=== PATIENT | female | born 1990 | race Caucasian/White ===

== ENCOUNTER 2016-05-02 12:45 | Emergency (ER) | payer BC ==
[2016-05-02 12:59] VITALS: BP 111/69
--- NOTE | 2016-05-02 13:05 | EDM.PDOC ---
<Naseem Ballard O - Last Filed: 05/02/16 16:17> ED HPI RENAL/ - General Chief Complaint: Flank Pain Stated Complaint: 18 WKS PREG/ POSS. KIDNEY STONE Time Seen by Provider: 05/02/16 13:01 Source of Information: Reports: Patient History Limitations: Reports: No limitations - History of Present Illness INITIAL COMMENTS - FREE TEXT/NARRATIVE: Patient is a 25-year-old female presents ED complaining of left flank pain that radiates into her left groin. Patient states this came on abruptly at approximately 9:30 this morning. Described as being sharp, constant, with waxing waning in intensity. Currently discomfort rated a 7/10. At its peak it 8/10. She does have some discomfort with urination with no hematuria present. She's my nauseated but no emesis. She has a history of mild constipation with last bowel movement this morning described as formed with no straining present. There is no blood within the stool. States she has a history kidney stones she states it feels like previous episodes. Last CT of the abdomen was obtained 12/2014 which revealed 2 small nonobstructive stone at the left kidney. She NO to the right kidney. Patient is of note 20 weeks with no documented complications since conceiving. Patient is taking vitamins. Her last CLIENT DEVELOPMENT DIRECTOR will check was March 31, 2016. She denies any vaginal bleeding, abnormal vaginal discharge, or recent sexual intercourse constant discomfort. Patient has both her ovaries. Timing/Duration: Reports: Constant, Sudden onset, Waxing/waning Location: Reports: groin (Left), flank (left) Quality: Reports: ache, stabbing, radiating Severity: severe (7/10) Worsens with: Reports: urinating, palpation Context: Reports: other (History kidney stones) Associated Symptoms: Reports: dysuria, abdominal pain (Left groin), nausea/ vomiting (Nauseated), constipation, other (No hematuria). 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 Denies: Bloody stool, Diarrhea, Hematochezia, Melena, Vomiting : Reports: dysuria, flank pain, other (No abnormal vaginal discharge). Denies : hematuria Musculoskeletal: Reports: no symptoms Neurological: Reports: no symptoms ED EXAM, RENAL/ - Physical Exam Exam: See Below Exam Limited By: No limitations General Appearance: alert, WD/WN, no apparent distress Eye Exam: bilateral eye: PERRL Ears: hearing grossly normal Throat/Mouth: Normal inspection, Normal oropharynx, Normal voice, No airway compromise Neck: normal inspection, supple Respiratory/Chest: no respiratory distress, lungs clear, normal breath sounds Cardiovascular: normal peripheral pulses, regular rate, rhythm GI/Abdominal: normal bowel sounds, soft, no organomegaly, no distention, other ( Pain to the left groin/left flank) (Female) Exam: Deferred, Enlarged uterus. No: Uterine tenderness Rectal (Female) Exam: Deferred Back Exam: normal inspection, full range of motion. No: CVA tenderness (L), CVA tenderness (R) Extremities: normal inspection, normal range of motion, non-tender, no pedal edema Neurological: alert, oriented, CN II-XII intact, normal cognition, no motor/ sensory deficits Psychiatric: normal affect, normal mood Skin Exam: Warm, Dry, Intact, Normal color Course - Vital Signs Last Recorded V/S: Last Vital Signs Temp 37.1 C 05/02/16 12:58 Pulse 73 05/02/16 12:58 Resp 20 05/02/16 12:58 BP 111/69 05/02/16 12:58 Pulse Ox 99 05/02/16 12:58 - Orders/Labs/Meds Orders: Active Orders 24 hr Category Date Time Status Peripheral IV Care [RC] . DIRECTED Care 05/02/16 13:30 Active Peripheral IV Insertion Adult [OM.PC] Stat Oth 05/02/16 13:28 Ordered Labs: Laboratory Tests 0205/02/16 05/02/16 Range/Units 12:57 13:55 13:55 WBC 8.34 (3.98-10.04) K/mm3 RBC 4.21 (3.98-5.22) M/mm3 Hgb 12.0 (11.2-15.7) gm/L Hct 36.4 (34.1-44.9) % MCV 86.5 (79.4-94.8) fl MCH 28.5 (25.6-32.2) pg MCHC 33.0 (32.2-35.5) g/dl RDW Std Deviation 41.9 (36.4-46.3) fL Plt Count 252 (182-369) K/mm3 MPV 10.0 (9.4-12.3) fl Neut % (Auto) 70.5 (34.0-71.1) % Lymph % (Auto) 21.9 (19.3-51.7) % [place] % (Auto) 4.4 L (4.7-12.5) % Eos % (Auto) 3.0 (0.7-5.8) Baso % (Auto) 0.1 (0.1-1.2) % Neut # 5.87 (1.56-6.13) K/mm3 Lymph # 1.83 (1.18-3.74) K/mm3 [place] # 0.37 H (0.24-0.36) K/mm3 Eos # 0.25 (0.04-0.36) K/mm3 Baso # 0.01 (0.01-0.08) K/mm3 Sodium 138 (136-145) mEq/L Potassium 4.1 (3.5-5.1) mEq/L Chloride 105 (98-107) mEq/L Carbon Dioxide 26 (21-32) mEq/L Anion Gap 11.1 (5-15) BUN 9 (7-18) mg/dL Creatinine 0.6 (0.55-1.02) mg/dL Est Cr Clr Drug Dosing 117.54 mL/min Estimated GFR (MDRD) > 60 (>60) mL/min BUN/Creatinine Ratio 15.0 (14-18) Glucose 106 (74-106) mg/dL Calcium 8.8 (8.5-10.1) mg/dL Total Bilirubin 0.6 (0.2-1.0) mg/dL AST 16 (15-37) U/L ALT 7 L (14-59) U/L Alkaline Phosphatase 56 (46-116) U/L C-Reactive Protein < 0.2 (<1.0) mg/dL Total Protein 6.2 L (6.4-8.2) g/dl Albumin 2.5 L (3.4-5.0) g/dl Globulin 3.7 gm/dL Albumin/Globulin Ratio 0.7 L (1-2) HCG, Quant mIU/mL Urine Color Light yellow (Yellow) Urine Appearance Slt cloudy H (Clear) Urine pH 7.0 (5.0-8.0) Ur Specific [place] 1.020 (1.005-1.030) Urine Protein Trace H (Negative) Urine Glucose (UA) Negative (Negative) Urine Ketones Negative (Negative) Urine Occult Blood 1+ H (Negative) Urine Nitrite Negative (Negative) Urine Bilirubin Negative (Negative) Urine Urobilinogen 0.2 (0.2-1.0) Ur Leukocyte Esterase Negative (Negative) Urine RBC 10-20 H (0-5) /hpf Urine WBC 0-5 (0-5) /hpf Ur Squamous Epith Cells 10-20 H (0-5) /hpf Amorphous Sediment Many H (NOT SEEN) /hpf Urine Bacteria Many H (FEW) /hpf Urine Mucus Not seen (FEW) /hpf 05/02/16 Range/Units 13:55 WBC (3.98-10.04) K/mm3 RBC (3.98-5.22) M/mm3 Hgb (11.2-15.7) gm/L Hct (34.1-44.9) % MCV (79.4-94.8) fl MCH (25.6-32.2) pg MCHC (32.2-35.5) g/dl RDW Std Deviation (36.4-46.3) fL Plt Count (182-369) K/mm3 MPV (9.4-12.3) fl Neut % (Auto) (34.0-71.1) % Lymph % (Auto) (19.3-51.7) % [place] % (Auto) (4.7-12.5) % Eos % (Auto) (0.7-5.8) Baso % (Auto) (0.1-1.2) % Neut # (1.56-6.13) K/mm3 Lymph # (1.18-3.74) K/mm3 [place] # (0.24-0.36) K/mm3 Eos # (0.04-0.36) K/mm3 Baso # (0.01-0.08) K/mm3 Sodium (136-145) mEq/L Potassium (3.5-5.1) mEq/L Chloride (98-107) mEq/L Carbon Dioxide (21-32) mEq/L Anion Gap (5-15) BUN (7-18) mg/dL Creatinine (0.55-1.02) mg/dL Est Cr Clr Drug Dosing mL/min Estimated GFR (MDRD) (>60) mL/min BUN/Creatinine Ratio (14-18) Glucose (74-106) mg/dL Calcium (8.5-10.1) mg/dL Total Bilirubin (0.2-1.0) mg/dL AST (15-37) U/L ALT (14-59) U/L Alkaline Phosphatase (46-116) U/L C-Reactive Protein (<1.0) mg/dL Total Protein (6.4-8.2) g/dl Albumin (3.4-5.0) g/dl Globulin gm/dL Albumin/Globulin Ratio (1-2) HCG, Quant 23514.0 mIU/mL Urine Color (Yellow) Urine Appearance (Clear) Urine pH (5.0-8.0) Ur Specific [place] (1.005-1.030) Urine Protein (Negative) Urine Glucose (UA) (Negative) Urine Ketones (Negative) Urine Occult Blood (Negative) Urine Nitrite (Negative) Urine Bilirubin (Negative) Urine Urobilinogen (0.2-1.0) Ur Leukocyte Esterase (Negative) Urine RBC (0-5) /hpf Urine WBC (0-5) /hpf Ur Squamous Epith Cells (0-5) /hpf Amorphous Sediment (NOT SEEN) /hpf Urine Bacteria (FEW) /hpf Urine Mucus (FEW) /hpf Meds: Medications Discontinued Medications Generic Name Dose Route Start Last Admin Trade Name Freq PRN Reason Stop Dose Admin Hydromorphone HCl 0.5 mg 05/02/16 13:31 05/02/16 13:41 Dilaudid IVPUSH 05/02/16 13:32 0.5 mg ONETIME ONE Administration Hydromorphone HCl 0.25 mg 05/02/16 15:07 05/02/16 15:11 Dilaudid IVPUSH 05/02/16 15:08 0.25 mg ONETIME ONE Administration Sodium Chloride 1,000 mls @ 125 mls/hr 05/02/16 13:45 05/02/16 13:41 Normal Saline IV 125 mls/hr ASDIRECTED MALKA Administration Ondansetron HCl 4 mg 05/02/16 13:31 05/02/16 13:41 Zofran IVPUSH 05/02/16 13:32 4 mg ONETIME ONE Administration Sodium Chloride 10 ml 05/02/16 13:29 05/02/16 13:40 Saline Flush FLUSH 10 ml ASDIRECTED PRN Administration Keep Vein Open Tamsulosin HCl 0.4 mg 05/02/16 16:03 05/02/16 16:11 Flomax PO 05/02/16 16:04 0.4 mg ONETIME ONE Administration - Re-Assessments/Exams Free Text/Narrative Re-Assessment/Exam: UA was obtained showing occult blood 1+, urine rbc's 10-20, leukocyte esterase negative, nitrates negative, wbc's 0-5. 05/02/16 13:35 ordered peripheral IV was normal saline at 25 mL per hour, Zofran 4 mg IVP, Dilaudid 0.5 mg IVP. Labs and studies include CBC, chem 14, CRP, HCG quanitative, and retroperitoneal complete ultrasound. 05/02/16 14:52 Labs reviewed: CBC and chem 14 were essentially normal. UA as documented above. Awaiting results of ultrasound. Pain to flank/groin has worsened with ultrasound. Ordered dilaudid 0.25 mg IVP. 05/02/16 15:27 HCG 29009. 05/02/16 16:04 ultrasound impression: Left-sided hydronephrosis with dilated left ureter seen within the pelvis. No definite shadowing stone is seen by findings are suspicious for obstruction at the UVJ. Resisted to the indices are also and slightly increased on the left side which is felt to be caused by the left distal ureteral obstruction. Slightly echogenic renal paramedics with in the right kidney raising the possibility of medullary sponge kidney. CT abdomen and pelvis obtained 12/19/14 impression: Two nonobstructing stones of the left kidney. Left ureteral dilatation secondary to an obstructing distal left ureteral stone measuring about 4.3 mm. This obstructing stone is located within the distal ureter near the UVJ. Reassessment, patient is resting comfortably in bed with minimal complaints at this time. Unclear if stone will pass on its own accord with unable to determine size. Will order flomax 0.4mg. Patient will be discharged home with instructions for kidney stone and prescriptions for zofran/norco/flomax. Departure - Departure Time of Disposition: 16:08 Disposition: Home, Self-Care 01 Clinical Impression: Ureteric colic, Left nephrolithiasis, Medullary sponge kidney Instructions: Renal Colic, [id number] Referrals: Konstantin Diop MD [Primary Care Provider] - Forms: ED Department Discharge, Refusal Medical Screening, Return to Work/ School Form Additional Instructions: Take the zofran 4mg ODT every 6 hours as needed for nausea. For pain take tylenol 650mg every 6 hours. For severe pain take norco1 tab every 6 hrs as needed. Do not take norco and tylenol together. Suggest straining all urine voids. Push the fluids. Take flomax 1 tab everyday. Followup with PCP in 2 days if symptoms have not improved. Keep appointment with CLIENT DEVELOPMENT DIRECTOR as scheduled. Return to the E.D. for fever, worsening pain, n/v, or any additional new or worsening symptoms. No driving today nor while taking the norco. Followup with PCP for further discussion for medullary sponge kidney. <Ruddy Patten - Last Filed: 05/02/16 19:45> ED HPI RENAL/ - General Source of Information: Reports: Patient History Limitations: Reports: No limitations Past Medical History Other Respiratory History: Patient had asthma since 7th grade, on medication albuterol inhalation Other OB/BYN History: LMP 09/26/14 Social & Family History - Tobacco Use Smoking Status *Q: Never Smoker - Recreational Drug Use Recreational Drug Use: No Course - Orders/Labs/Meds Orders: Active Orders 24 hr Category Date Time Status Peripheral IV Care [RC] . DIRECTED Care 05/02/16 13:30 Active Peripheral IV Insertion Adult [OM.PC] Stat Oth 05/02/16 13:28 Ordered Labs: Laboratory Tests 05/02/16 05/02/16 05/02/16 Range/Units 12:57 13:55 13:55 WBC 8.34 (3.98-10.04) K/mm3 RBC 4.21 (3.98-5.22) M/mm3 Hgb 12.0 (11.2-15.7) gm/L Hct 36.4 (34.1-44.9) % MCV 86.5 (79.4-94.8) fl MCH 28.5 (25.6-32.2) pg MCHC 33.0 (32.2-35.5) g/dl RDW Std Deviation 41.9 (36.4-46.3) fL Plt Count 252 (182-369) K/mm3 MPV 10.0 (9.4-12.3) fl Neut % (Auto) 70.5 (34.0-71.1) % Lymph % (Auto) 21.9 (19.3-51.7) % [place] % (Auto) 4.4 L (4.7-12.5) % Eos % (Auto) 3.0 (0.7-5.8) Baso % (Auto) 0.1 (0.1-1.2) % Neut # 5.87 (1.56-6.13) K/mm3 Lymph # 1.83 (1.18-3.74) K/mm3 [place] # 0.37 H (0.24-0.36) K/mm3 Eos # 0.25 (0.04-0.36) K/mm3 Baso # 0.01 (0.01-0.08) K/mm3 Sodium 138 (136-145) mEq/L Potassium 4.1 (3.5-5.1) mEq/L Chloride 105 (98-107) mEq/L Carbon Dioxide 26 (21-32) mEq/L Anion Gap 11.1 (5-15) BUN 9 (7-18) mg/dL Creatinine 0.6 (0.55-1.02) mg/dL Est Cr Clr Drug Dosing 117.54 mL/min Estimated GFR (MDRD) > 60 (>60) mL/min BUN/Creatinine Ratio 15.0 (14-18) Glucose 106 (74-106) mg/dL Calcium 8.8 (8.5-10.1) mg/dL Total Bilirubin 0.6 (0.2-1.0) mg/dL AST 16 (15-37) U/L ALT 7 L (14-59) U/L Alkaline Phosphatase 56 (46-116) U/L C-Reactive Protein < 0.2 (<1.0) mg/dL Total Protein 6.2 L (6.4-8.2) g/dl Albumin 2.5 L (3.4-5.0) g/dl Globulin 3.7 gm/dL Albumin/Globulin Ratio 0.7 L (1-2) HCG, Quant mIU/mL Urine Color Light yellow (Yellow) Urine Appearance Slt cloudy H (Clear) Urine pH 7.0 (5.0-8.0) Ur Specific [place] 1.020 (1.005-1.030) Urine Protein Trace H (Negative) Urine Glucose (UA) Negative (Negative) Urine Ketones Negative (Negative) Urine Occult Blood 1+ H (Negative) Urine Nitrite Negative (Negative) Urine Bilirubin Negative (Negative) Urine Urobilinogen 0.2 (0.2-1.0) Ur Leukocyte Esterase Negative (Negative) Urine RBC 10-20 H (0-5) /hpf Urine WBC 0-5 (0-5) /hpf Ur Squamous Epith Cells 10-20 H (0-5) /hpf Amorphous Sediment Many H (NOT SEEN) /hpf Urine Bacteria Many H (FEW) /hpf Urine Mucus Not seen (FEW) /hpf 05/02/16 Range/Units 13:55 WBC (3.98-10.04) K/mm3 RBC (3.98-5.22) M/mm3 Hgb (11.2-15.7) gm/L Hct (34.1-44.9) % MCV (79.4-94.8) fl MCH (25.6-32.2) pg MCHC (32.2-35.5) g/dl RDW Std Deviation (36.4-46.3) fL Plt Count (182-369) K/mm3 MPV (9.4-12.3) fl Neut % (Auto) (34.0-71.1) % Lymph % (Auto) (19.3-51.7) % [place] % (Auto) (4.7-12.5) % Eos % (Auto) (0.7-5.8) Baso % (Auto) (0.1-1.2) % Neut # (1.56-6.13) K/mm3 Lymph # (1.18-3.74) K/mm3 [place] # (0.24-0.36) K/mm3 Eos # (0.04-0.36) K/mm3 Baso # (0.01-0.08) K/mm3 Sodium (136-145) mEq/L Potassium (3.5-5.1) mEq/L Chloride (98-107) mEq/L Carbon Dioxide (21-32) mEq/L Anion Gap (5-15) BUN (7-18) mg/dL Creatinine (0.55-1.02) mg/dL Est Cr Clr Drug Dosing mL/min Estimated GFR (MDRD) (>60) mL/min BUN/Creatinine Ratio (14-18) Glucose (74-106) mg/dL Calcium (8.5-10.1) mg/dL Total Bilirubin (0.2-1.0) mg/dL AST (15-37) U/L ALT (14-59) U/L Alkaline Phosphatase (46-116) U/L C-Reactive Protein (<1.0) mg/dL Total Protein (6.4-8.2) g/dl Albumin (3.4-5.0) g/dl Globulin gm/dL Albumin/Globulin Ratio (1-2) HCG, Quant 99817.0 mIU/mL Urine Color (Yellow) Urine Appearance (Clear) Urine pH (5.0-8.0) Ur Specific [place] (1.005-1.030) Urine Protein (Negative) Urine Glucose (UA) (Negative) Urine Ketones (Negative) Urine Occult Blood (Negative) Urine Nitrite (Negative) Urine Bilirubin (Negative) Urine Urobilinogen (0.2-1.0) Ur Leukocyte Esterase (Negative) Urine RBC (0-5) /hpf Urine WBC (0-5) /hpf Ur Squamous Epith Cells (0-5) /hpf Amorphous Sediment (NOT SEEN) /hpf Urine Bacteria (FEW) /hpf Urine Mucus (FEW) /hpf Meds: Medications Discontinued Medications Generic Name Dose Route Start Last Admin Trade Name Freq PRN Reason Stop Dose Admin Hydromorphone HCl 0.5 mg 05/02/16 13:31 05/02/16 13:41 Dilaudid IVPUSH 05/02/16 13:32 0.5 mg ONETIME ONE Administration Hydromorphone HCl 0.25 mg 05/02/16 15:07 05/02/16 15:11 Dilaudid IVPUSH 05/02/16 15:08 0.25 mg ONETIME ONE Administration Sodium Chloride 1,000 mls @ 125 mls/hr 05/02/16 13:45 05/02/16 13:41 Normal Saline IV 125 mls/hr ASDIRECTED MALKA Administration Ondansetron HCl 4 mg 05/02/16 13:31 05/02/16 13:41 Zofran IVPUSH 05/02/16 13:32 4 mg ONETIME ONE Administration Sodium Chloride 10 ml 05/02/16 13:29 05/02/16 13:40 Saline Flush FLUSH 10 ml ASDIRECTED PRN Administration Keep Vein Open Tamsulosin HCl 0.4 mg 05/02/16 16:03 05/02/16 16:11 Flomax PO 05/02/16 16:04 0.4 mg ONETIME ONE Administration
[2016-05-02] MEDS ORDERED: Sodium Chloride 0.9% 10 ML Syringe FLUSH PRN (13:29)
[2016-05-02] MEDS ORDERED: HYDROmorphone 0.5 MG/0.5 ML Syringe IVPUSH ONE ×2 (13:31→15:07)
[2016-05-02] MEDS ORDERED: Ondansetron 4 MG/2 ML SDV IVPUSH ONE (13:31)
[2016-05-02] MEDS ORDERED: Sodium Chloride 0.9% 1,000 ML IV SCH (13:45)
--- NOTE | 2016-05-02 15:14 | US ---
Renal ultrasound: Multiple real-time images of the kidneys were obtained. Comparison: Previous stone CT exam dated 12/19/14. Mild left-sided hydronephrosis is seen. Distal left ureter is dilated. No definite shadowing stone is identified within the ureter but findings are suspicious for obstruction at the UVJ. No right-sided hydronephrosis is seen. Renal pyramids within the right kidney are slightly echogenic raising the possibility of medullary sponge kidney. No cortical abnormalities are seen. No ureteral jets are seen within the bladder. No significant post void residual is seen within the bladder. Resistivity indices are slightly elevated on the left side which would be consistent with ureteral obstruction. Right resistivity indices are normal. Right kidney has a length of 10.3 cm Left kidney has a length of 12.2 cm Impression: 1. Left-sided hydronephrosis with dilated left ureter seen within the pelvis. No definite shadowing stone is seen but findings are suspicious for obstruction at the UVJ. Resistivity indices are also slightly increased on the left side which is felt to be caused by left distal ureteral obstruction. 2. Slightly echogenic renal pyramids within the right kidney raising the possibility of medullary sponge kidney. Diagnostic code #3
[2016-05-02] MEDS ORDERED: Tamsulosin 0.4 MG Cap.ER PO ONE (16:03)
== END 2016-05-02 16:20 | disposition home or self-care (01) ==
LOC: JD.ED 12:45
DX: O26.832 Pregnancy related renal disease, second trimester (principal); N13.2 Hydronephrosis with renal and ureteral calculous obstruction; O99.89 Other specified diseases and conditions complicating pregnancy, childbirth and the puerperium; Q61.5 Medullary cystic kidney; Z3A.18 18 weeks gestation of pregnancy
CPT/HCPCS: 36415; 76770; 80053; 81001; 84702; 85025; 86140; 96361; 96374; 96375; 96376; 99284; A9270; J1170; J2405; J7040; J7050

== ENCOUNTER 2016-12-14 13:53 | Emergency (ER) | payer BC, OTHER ==
[2016-12-14 14:29] VITALS: BP 129/90
[2016-12-14] MEDS ORDERED: Diphtheria,Pertussis(Acell),Tetanus Vaccine 0.5 ML SDV IM ONE (15:11)
--- NOTE | 2016-12-14 15:15 | EDM.PDOC ---
ED HPI GENERAL MEDICAL PROBLEM - General Chief Complaint: Bite:Animal, Insect Stated Complaint: BITE BY A DOG Time Seen by Provider: 12/14/16 15:03 Source of Information: Reports: Patient History Limitations: Reports: No Limitations - History of Present Illness INITIAL COMMENTS - FREE TEXT/NARRATIVE: Patient is a 26-year-old female presents ED complaining of a bite wound to the right dorsal aspect of her hand along the fourth metacarpal. 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 Pain is localized. Minimal swelling present. No bleeding currently. Wound is 0.8 cm. Patient is able to flex and extend the wrist and all fingers with no difficulty. No other complaints. 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 ED EXAM, ANIMAL BITE - Physical Exam Exam: See Below Exam Limited By: No Limitations General Appearance: Alert, WD/WN, No Apparent Distress Ears: Hearing Grossly Normal Nose: Normal Inspection Throat/Mouth: Normal Voice, No Airway Compromise Neck: Normal Inspection, Supple Respiratory/Chest: No Respiratory Distress, No Accessory Muscle Use Cardiovascular: Normal Peripheral Pulses, Regular Rate, Rhythm Peripheral Pulses: 2+: Radial (R) Extremities: Other (0.8 cm deep laceration to the dorsal aspect of the right hand along the fourth metacarpal. Minimal swelling present. No bleeding present. Minimal pain with palpation. Able to extend the wrist and all fingers with no difficulties. No sensory deficits noted.) Neurological: Alert, Oriented, CN II-XII Intact, Normal Cognition, No Motor/ Sensory Deficits Psychiatric: Normal Affect, Normal Mood Skin Exam: Normal Color, Warm/Dry Course - Vital Signs Last Recorded V/S: Last Vital Signs Temp 98.5 F 12/14/16 14:25 Pulse 79 12/14/16 14:25 Resp 18 12/14/16 14:25 BP 129/90 12/14/16 14:25 Pulse Ox 98 12/14/16 14:25 - Orders/Labs/Meds Orders: Active Orders 24 hr Category Date Time Status Vaccines to be Administered [RC] PER UNIT ROUTINE Care 12/14/16 15:12 Active Hand Comp Min 3V Rt [CR] Stat Exams 12/14/16 15:11 Taken Meds: Medications Discontinued Medications Generic Name Dose Route Start Last Admin Trade Name Sulma PRN Reason Stop Dose Admin Amoxicillin/Clavulanate Potassium 1 tab 12/14/16 15:59 12/14/16 16:14 Augmentin 875 Mg/125 Mg PO 12/14/16 16:00 1 tab ONETIME ONE Administration Diphtheria/Tetanus/Acell Pertussis 0.5 ml 12/14/16 15:11 Adacel IM 12/14/16 15:12 .ONCE ONE - Re-Assessments/Exams Free Text/Narrative Re-Assessment/Exam: Order x-ray of the right hand. Patient states her tetanus status is up-to-date. X-ray of the right hand did not reveal any acute bony abnormality is. Ordered Augmentin 1 tab by mouth. We'll discharge patient home with instructions as documented. Departure - Departure Time of Disposition: 16:00 Disposition: Home, Self-Care 01 Condition: Good Clinical Impression: Dog bite of hand Qualifiers: Encounter type: initial encounter Laterality: right Qualified Code(s): S61.451A - Open bite of right hand, initial encounter - Discharge Information Prescriptions: Amoxicillin/Clavulanate K [Augmentin 875 MG/125 MG] 1 tab PO Q12HR #14 tablet Instructions: Animal Bite, [id number] Referrals: PCP,None [Primary Care Provider] - Forms: ED Department Discharge Additional Instructions: Take the Augmentin as prescribed 1 tab twice a day for the next [address] ice to affected area as needed to reduce any swelling and pain. Take ibuprofen and Tylenol in alternating fashion as needed for pain. Wound she be cleanse twice daily with soap and water, pat dry, reapply triple antibiotic ointment, and dressing. Keep area clean and dry. Wound will have to heal by secondary intentions from the inside out. You have 10 days to initiate treatment for rabies. If you find out the dog has rabies please return back to the ED. This is a low probability since dog is residing in a residence. Please return back to ED for any new or worsening symptoms. - My Orders Last 24 Hours: My Active Orders 12/14/16 15:11 Hand Comp Min 3V Rt [CR] Stat 12/14/16 15:12 Vaccines to be Administered [RC] PER UNIT ROUTINE - Assessment/Plan Last 24 Hours: My Active Orders 12/14/16 15:11 Hand Comp Min 3V Rt [CR] Stat 12/14/16 15:12 Vaccines to be Administered [RC] PER UNIT ROUTINE
[2016-12-14] MEDS ORDERED: Amoxicillin/Clavulanate K 875-125 MG Tab PO ONE (15:59)
--- NOTE | 2016-12-15 08:22 | CR ---
Right hand: 4 views of the right hand were obtained. Comparison: No previous hand study. Joint spaces are preserved. Slight deformity is noted within the distal fifth metacarpal presumably due to old healed fracture. Please correlate. No fracture or additional bony abnormality is appreciated. Impression: 1. Presumed old healed fracture within the distal fifth metacarpal. 2. No additional abnormality is appreciated on right hand study. Diagnostic code #2
== END 2016-12-14 16:18 | disposition home or self-care (01) ==
LOC: JD.ED 13:53
DX: S61.451A Open bite of right hand, initial encounter (principal); W54.0XXA Bitten by dog, initial encounter
CPT/HCPCS: 73130; 99284; A9270; 99283